=== PATIENT | female | born 1995 | race American Indian/Alaskan Native ===

== ENCOUNTER 2017-10-17 14:00 | Emergency (ER) | payer MEDICAID, OTHER ==
[2017-10-17 14:10] VITALS: TEMP 98
[2017-10-17 14:38] LABS: HCG,QUALITATIVE URINE POSITIVE (NEGATIVE)
[2017-10-17 14:41] LABS: SQUAMOUS EPITHIAL 1 /hpf (0-5); URINE BILIRUBIN NEGATIVE (NEGATIVE); URINE BLOOD NEGATIVE (NEGATIVE); URINE CLARITY Clear (Clear); URINE COLOR Yellow (YELLOW); URINE GLUCOSE (UA) NORMAL (Normal); URINE LEUKOCYTE ESTERASE NEG Leu/uL (Negative); URINE PROTEIN NEGATIVE (NEGATIVE)
--- NOTE | 2017-10-17 15:26 | C.PDOC ---
History Of Present Illness 22 yo female , LNMP 08/29/17, present to ED for evaluation of vaginal spotting developed since early today. Pt denies fever, chills, abd. pain, N/V, back pain, UTI sx, denies previous hx of ectopic . Ambulate to Ed for evaluation, not in any apparent distress. Time Seen by Provider: 10/17/17 14:13 Chief Complaint (Nursing): Female Genitourinary History Per: Patient Past Medical History Reviewed: Historical Data, Nursing Documentation, Vital Signs Vital Signs: Last Vital Signs Temp 98.0 F 10/17/17 14:09 Pulse 73 10/17/17 16:27 Resp 16 10/17/17 16:27 BP 118/78 10/17/17 16:27 Pulse Ox 97 10/17/17 16:39 - Medical History PMH: No Chronic Diseases Surgical History: No Surg Hx Family History: States: Unknown Family Hx - Social History Hx Tobacco Use: Yes Hx Alcohol Use: No Hx Substance Use: Yes - Immunization History Hx Tetanus Toxoid Vaccination: No Hx Influenza Vaccination: No Hx Pneumococcal Vaccination: No Review Of Systems Except As Marked, All Systems Reviewed And Found Negative. Constitutional: Negative for: Fever, Chills ENT: Negative for: Throat Pain Cardiovascular: Negative for: Chest Pain, Palpitations Respiratory: Negative for: Cough, Shortness of Breath, Hemoptysis, Wheezing Gastrointestinal: Negative for: Nausea, Vomiting, Abdominal Pain, Diarrhea Genitourinary: Positive for: Vaginal Bleeding. Negative for: Dysuria, Incontinence, Hematuria, Vaginal Discharge Musculoskeletal: Negative for: Neck Pain, Back Pain Skin: Negative for: Rash Neurological: Negative for: Weakness, Numbness, Altered Mental Status, Headache , Dizziness Physical Exam - Physical Exam Appears: Well, Non-toxic, No Acute Distress Skin: Normal Color, Warm, Dry, No Rash Head: Normacephalic Eye(s): bilateral: PERRL Nose: No Discharge Oral Mucosa: Moist, No Drooling Throat: No Erythema Neck: Trachea Midline, Supple Cardiovascular: Rhythm Regular, No Murmur, No JVD Respiratory: No Decreased Breath Sounds, No Accessory Muscle Use, No Stridor, No Wheezing Gastrointestinal/Abdominal: Soft, No Tenderness, No Distention, No Guarding, No Rebound Back: No CVA Tenderness Extremity: Normal ROM, No Deformity, No Swelling Neurological/Psych: Oriented x3, Normal Speech ED Course And Treatment - Laboratory Results Result Diagrams: 10/17/17 16:11 Lab Interpretation: Normal Urine POC: Positive O2 Sat by Pulse Oximetry: 97 Pulse Ox Interpretation: Normal - CT Scan/US Transvaginal US Other Rad Studies (CT/US): Radiology Report Reviewed CT/US Interpretation: 6w5d, IUP, FP, YS, HR(+)115/min, no other acute findings Progress Note: On re-evaluation, pt is afebrile, hemodynamicaly stable. Non- toxic. Abd: benign, (-) guarding, (-) rebound. Back: (-) CVA tenderness. Blood work review, normal. US results review (+) IUP 6w5d, (+) HR, no acute findings. Beta quant resuilts review [id number] and c/w US findings. Blood type O positive. Pt has clinical findings c/w threatened . Pt advised, ref. to F/u with OB in 1-2 days for re-eval. return to ED if any worsening or new changes. Disposition Counseled Patient/Family Regarding: Studies Performed, Diagnosis, Need For Followup, Rx Given - [facility]position [facility] Disposition: HOME/ ROUTINE Disposition Time: 16:36 Condition: STABLE Prescriptions: Vit Calc,Iron,Folic [ Vitamins] 1 each PO DAILY #30 tablet Instructions: Threatened Miscarriage, Quitting Smoking Forms: [facility] (Macedonian) - Clinical Impression Clinical Impression: Threatened , Encounter for smoking cessation counseling
[2017-10-17 16:16] LABS: BASO % 0.6 % (0.0-2.0); EOS # 0.1 K/uL (0.0-0.7); EOS % 1.2 % (0.0-4.0); HEMOGLOBIN 12.2 g/dL (11.0-16.0); LYMPH # 1.6 K/uL (1.0-4.3); LYMPH % 21.2 % (20.0-40.0); MEAN CORPUSCULAR HGB CONC 34.3 g/dL (33.0-37.0); MEAN PLATELET VOLUME 7.9 fL (7.2-11.7); MONO # 0.9 K/uL (0.0-0.8); MONO % 12.2 % (0.0-10.0); NEUT % 64.8 % (50.0-75.0); RBC 4.19 Mil/uL (3.80-5.20); RED CELL DISTRIBUTION WIDTH 13.4 % (11.5-14.5)
[2017-10-17 16:18] LABS: MEAN CELL VOLUME 84.7 fL (81.0-99.0); WHITE BLOOD COUNT 7.7 K/uL (4.8-10.8)
--- NOTE | 2017-10-17 16:19 | US ---
PROCEDURE: OB Pelvic Ultrasound HISTORY: vaginal bleed COMPARISON: None available. FINDINGS: UTERUS: Single Live intrauterine gestation. CRL is 6 mm equivalent to 6 weeks 3 days. Gestational sac diameter is 24 mm equivalent to 7 weeks 0 days age (Ultrasound estimated): 6 weeks 5 days Date of delivery (Ultrasound estimated) : 06/07/2018 Heart rate: 115 bpm. Sara-gestational hemorrhage: None. 2 mm yolk sac identified Uterus measures 8.3 x 4.5 x 6.4 cm. Posterior sub serosal uterine fibroid, 1.7 x 1.6 x 1.8 cm. CERVIX: Long and closed. No cervical abnormality seen. RIGHT OVARY: Measures 2.8 x 1.9 x 2.0 cm. No mass. Normal flow. LEFT OVARY: Measures 3.2 x 2.2 x 3.7 cm. Corpus luteum identified, 1.6 cm. Normal flow. FREE FLUID: None. OTHER FINDINGS: None. IMPRESSION: Single live intrauterine gestation of approximately 6 weeks 5 days gestational age. No subchorionic hemorrhage. Left ovarian corpus luteum. Incidental 1.8 cm posterior subserosal uterine fibroid.
[2017-10-17 16:27] VITALS: BP 118/78; PULSE 73; RESP 16
[2017-10-17 16:36] VITALS: O2SAT 97
== END 2017-10-17 17:37 | disposition home or self-care (01) ==
LOC: C.ER 14:00
DX: O20.0 Threatened abortion (principal); Z3A.01 Less than 8 weeks gestation of pregnancy; Z71.6 Tobacco abuse counseling

== ENCOUNTER 2017-10-22 14:10 | Emergency (ER) | payer OTHER ==
[2017-10-22 14:27] VITALS: RESP 18; TEMP 98; O2SAT 100
--- NOTE | 2017-10-22 14:43 | C.PDOC ---
History Of Present Illness 22 year old female presents to the ED with worsening abdominal cramping. Patient was seen here on 10/17 for vaginal spotting and diagnosed with 6 week viable at that time. Given instructions for possible threatened miscarriage and advised to follow up with OB. Patient reports since then the suprapubic cramping has returned and is persistent. She has not been seen by OB yet. No vaginal bleeding, discharge, or fever. Time Seen by Provider: 10/22/17 14:19 Chief Complaint (Nursing): Female Genitourinary History Per: Patient History/Exam Limitations: no limitations Onset/Duration Of Symptoms: Days Current Symptoms Are (Timing): Still Present Quality Of Discomfort: Cramping Abnormal Vaginal Bleeding: No Past Medical History Reviewed: Historical Data, Nursing Documentation, Vital Signs Vital Signs: Last Vital Signs Temp 98 F 10/22/17 14:23 Pulse 72 10/22/17 14:23 Resp 18 10/22/17 14:23 BP 109/63 10/22/17 14:23 Pulse Ox 100 10/22/17 14:45 Surgical History: No Surg Hx Family History: States: Unknown Family Hx - Social History Hx Tobacco Use: Yes Hx Alcohol Use: No Hx Substance Use: No - Immunization History Hx Tetanus Toxoid Vaccination: No Hx Influenza Vaccination: No Hx Pneumococcal Vaccination: No Review Of Systems Constitutional: Negative for: Fever, Chills Gastrointestinal: Positive for: Abdominal Pain. Negative for: Vomiting Genitourinary: Negative for: Vaginal Discharge, Vaginal Bleeding Physical Exam - Physical Exam Appears: Non-toxic, No Acute Distress Skin: Normal Color, Warm, Dry Head: Atraumatic, Normacephalic Eye(s): bilateral: Normal Inspection, PERRL, EOMI Oral Mucosa: Moist Neck: Normal ROM Chest: Symmetrical Cardiovascular: Rhythm Regular, No Murmur Respiratory: Normal Breath Sounds, No Rales, No Rhonchi, No Wheezing Gastrointestinal/Abdominal: Soft, No Tenderness, No Distention, No Guarding, No Rebound Extremity: Bilateral: Atraumatic, Normal Color And Temperature, Normal ROM Neurological/Psych: Oriented x3, Normal Speech ED Course And Treatment - Laboratory Results Result Diagrams: 10/22/17 15:05 Lab Interpretation: Normal Interpretation Of Abnormal: HCG 283272.0 O2 Sat by Pulse Oximetry: 100 (RA) Pulse Ox Interpretation: Normal - CT Scan/US Pelvic ultrasound Other Rad Studies (CT/US): Read By Radiologist, Radiology Report Reviewed CT/US Interpretation: Accession No. : [id number]. Patient Name / ID : TORRIE GONZALEZ / [id number]. Exam Date : 10/22/2017 17:13:43 ( Approved ). Study Comment : Sex / Age : F / 22Y. Creator : Kamini Lizarraga MD. Dictator : Kamini Lizarraga MD. Motor Hotel Manager : Bomb Loader : Kamini Lizarraga MD. Approver2 : Report Date : 10/22/2017 18:06:17. My Comment : . PROCEDURE: OB Pelvic Ultrasound. HISTORY: with abdominal pain. COMPARISON: 10/17/2017. FINDINGS: UTERUS: Single Live intrauterine gestation. CRL equivalent to 0.87 cm corresponding to 6 weeks and 6 days of gestational age. Gestational sac diameter measures 2.51 cm equivalent to 7 weeks and 1 day gestation. age (Ultrasound estimated): 7 weeks and 0 days. Date of delivery (Ultrasound estimated) : 06/10/2018. Heart rate: 143 bpm. Sara- gestational hemorrhage: None. Uterus is anteverted and measures 9.1 x 4.3 x 6.7 cm. There is redemonstration of 2.0 x 1.7 x 1.9 cm posterior fundal subserosal fibroid. CERVIX: Long and closed. No cervical abnormality seen. RIGHT OVARY: Measures 3.7 x 2.0 x 2.8 cm. No mass. Normal flow. LEFT OVARY: Measures 3.1 x 2.2 x 2.9 cm. No mass. Normal flow. There is a 1.9 cm corpus luteum cyst. FREE FLUID: There is a small amount of free fluid in the cul de sac. OTHER FINDINGS: None. IMPRESSION: Single live intrauterine gestation with mean gestational age of 7 weeks and 0 days.Estimated date of delivery by ultrasound is 06/10/2018. The ultrasound dates correspond with the clinical dates. 2.0 cm posterior fundal subserosal fibroid. Progress Note: Ordered blood work and repeat beta-HCG Reevaluation Time: 18:29 Reassessment Condition: Improved Disposition Counseled Patient/Family Regarding: Studies Performed, Diagnosis, Need For Followup - Disposition Referrals: [facility] [Outside] Disposition: HOME/ ROUTINE Disposition Time: 18:29 Condition: STABLE Instructions: - The Second Month Forms: [employer] (Czech) - Clinical Impression Clinical Impression: Abdominal pain affecting - Scribe Statement The provider has reviewed the documentation as recorded by the Scribe (Chanda Reyes) Provider Attestation: All medical record entries made by the Scribe were at my direction and personally dictated by me. I have reviewed the chart and agree that the record accurately reflects my personal performance of the history, physical exam, medical decision making, and the department course for this patient. I have also personally directed, reviewed, and agree with the discharge instructions and disposition.
[2017-10-22 15:09] LABS: BASO % 0.5 % (0.0-2.0); EOS # 0.1 K/uL (0.0-0.7); EOS % 1.4 % (0.0-4.0); HEMOGLOBIN 11.4 g/dL (11.0-16.0); LYMPH # 1.3 K/uL (1.0-4.3); LYMPH % 19.5 % (20.0-40.0); MEAN CELL VOLUME 85.8 fL (81.0-99.0); MEAN CORPUSCULAR HEMOGLOBIN 29.2 pg (27.0-31.0); MEAN PLATELET VOLUME 8.1 fL (7.2-11.7); MONO # 0.8 K/uL (0.0-0.8); MONO % 11.4 % (0.0-10.0); NEUT # 4.6 K/uL (1.8-7.0); NEUT % 67.2 % (50.0-75.0); RBC 3.89 Mil/uL (3.80-5.20); RED CELL DISTRIBUTION WIDTH 13.5 % (11.5-14.5); WHITE BLOOD COUNT 6.8 K/uL (4.8-10.8)
--- NOTE | 2017-10-22 18:07 | US ---
PROCEDURE: OB Pelvic Ultrasound HISTORY: with abdominal pain COMPARISON: 10/17/2017. FINDINGS: UTERUS: Single Live intrauterine gestation. CRL equivalent to 0.87 cm corresponding to 6 weeks and 6 days of gestational age. Gestational sac diameter measures 2.51 cm equivalent to 7 weeks and 1 day gestation age (Ultrasound estimated): 7 weeks and 0 days Date of delivery (Ultrasound estimated) : 06/10/2018 Heart rate: 143 bpm. Sara-gestational hemorrhage: None. Uterus is anteverted and measures 9.1 x 4.3 x 6.7 cm. There is redemonstration of 2.0 x 1.7 x 1.9 cm posterior fundal subserosal fibroid. CERVIX: Long and closed. No cervical abnormality seen. RIGHT OVARY: Measures 3.7 x 2.0 x 2.8 cm. No mass. Normal flow. LEFT OVARY: Measures 3.1 x 2.2 x 2.9 cm. No mass. Normal flow. There is a 1.9 cm corpus luteum cyst. FREE FLUID: There is a small amount of free fluid in the cul de sac. OTHER FINDINGS: None. IMPRESSION: Single live intrauterine gestation with mean gestational age of 7 weeks and 0 days.Estimated date of delivery by ultrasound is 06/10/2018. The ultrasound dates correspond with the clinical dates. 2.0 cm posterior fundal subserosal fibroid.
[2017-10-22 18:50] VITALS: BP 104/60; PULSE 68
== END 2017-10-22 18:50 | disposition home or self-care (01) ==
LOC: C.ER 14:10
DX: O26.91 Pregnancy related conditions, unspecified, first trimester (principal); R10.9 Unspecified abdominal pain; Z3A.01 Less than 8 weeks gestation of pregnancy

== ENCOUNTER 2018-02-23 16:32 | Inpatient (IN) | payer OTHER, MEDICAID ==
[2018-02-23 16:43] VITALS: RESP 18
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
[2018-02-23 18:17] LABS: ABG ALLEN TEST POS; ARTERIAL BLOOD GAS HCO3 22.1 mmol/L (21-28); ARTERIAL BLOOD GAS HEMOGLOBIN 8.5 g/dL (11.7-17.4); ARTERIAL BLOOD GAS O2 SAT 99.8 % (95-98); ARTERIAL BLOOD GAS PCO2 17 mm/Hg (35-45); ARTERIAL BLOOD GAS TCO2 17.2 mmol/L (22-28)
[2018-02-23] MEDS ORDERED: Lactated Ringer's 1,000 ML IV ONE (22:14)
[2018-02-23] MEDS ORDERED: Betamethasone Soluspan 30 mg/5mL Inj Susp IM ONE (22:45)
[2018-02-23] MEDS ORDERED: Magnesium Sulfate 4 gm/100 ml 4 GM/100 ML BAG IVPB ONE ×2 (23:13→23:16)
[2018-02-23] MEDS ORDERED: Lactated Ringer's 1,000 ML IV SCH (23:15)
[2018-02-23] MEDS ORDERED: Magnesium Sulfate 20 gm 20 GM/500 ML BAG IV SCH (23:15)
--- NOTE | 2018-02-23 23:44 | OBPN ---
Datetime: 02/23/2018 22:45 Membranes, Provider: Intact Contraction Comments Provider: 3-6 IP Progress Note Comment: S/P Ob ultrasound (+) FM. denies Ctx, pelvic pressure Rendon noted for more pronounced contractions Cervical exam: as above Assessment 22 y.o. P0, 25w 4d, S/P CO exposure; Uterine irritability - cervical exam as above. FHR appropriate for gestational age. Plan: 1) IVFs 2) send U/A 3) Betamethasone 12 micrograms IM x 1 4) Observe Case D/W Dr. Mccoy [facility] at approximately 2300 hours: recommends magnesium sulphate therapy and ult rasound in ATU at [address] in the morning. This was discussed with the patient who expre sesd an understanding and she agrees. Plan: 1) Magnesium sulphate: load 4 grams x 1, followed by 2 grams/hour 2) Ob ultrasound in AM, [address] (cervical length) 3) Anticipate Betamethasone 12 mg IM x 1 in 24 hours (02/24/18 approx [id number] hours 4) Observe Dilatation, Provider: FT Effacement, Provider: 40 Station, Provider: -3 Datetime: 02/23/2018 20:23 FHR - Baseline A Provider: 150 Gestation - Est Wks by US: 25w 4d
[2018-02-24] MEDS ORDERED: Magnesium Sulfate 20 gm 20,000 MG/500 ML BAG IV ONE ×2 (00:01→06:46)
[2018-02-24] MEDS ORDERED: Magnesium Sulfate 20 gm 20 GM/500 ML BAG IV SCH ×2 (00:12→00:15)
[2018-02-24 00:15] LABS: BASO % 0.4 % (0.0-2.0); EOS # 0.1 K/uL (0.0-0.7); HEMOGLOBIN 9.9 g/dL (11.0-16.0); LYMPH # 1.8 K/uL (1.0-4.3); MEAN CELL VOLUME 85.8 fL (81.0-99.0); MEAN CORPUSCULAR HEMOGLOBIN 29.4 pg (27.0-31.0); MEAN CORPUSCULAR HGB CONC 34.2 g/dL (33.0-37.0); MEAN PLATELET VOLUME 8.4 fL (7.2-11.7); MONO # 0.8 K/uL (0.0-0.8); MONO % 9.7 % (0.0-10.0); NEUT # 5.8 K/uL (1.8-7.0); NEUT % 67.9 % (50.0-75.0); RBC 3.36 Mil/uL (3.80-5.20); RED CELL DISTRIBUTION WIDTH 13.8 % (11.5-14.5); WHITE BLOOD COUNT 8.6 K/uL (4.8-10.8)
[2018-02-24 00:21] LABS: SQUAMOUS EPITHIAL 3 /hpf (0-5); URINE BACTERIA RARE (<OCC); URINE BILIRUBIN NEGATIVE (NEGATIVE); URINE BLOOD NEGATIVE (NEGATIVE); URINE CLARITY Hazy (Clear); URINE COLOR Yellow (YELLOW); URINE GLUCOSE (UA) NORMAL (Normal); URINE LEUKOCYTE ESTERASE 2+ Leu/uL (Negative); URINE PROTEIN NEGATIVE (NEGATIVE)
[2018-02-24 00:36] LABS: ALB/GLOB RATIO 1.1 (1.0-2.1); ALBUMIN 3.5 g/dL (3.5-5.0); ALT/SGPT 23 U/L (9-52); AST/SGOT 13 U/L (14-36); BLOOD UREA NITROGEN 7 mg/dL (7-17); CALCIUM 9.4 mg/dl (8.6-10.4); GFR AFRICAN-AMERICAN > 60; GFR NON-AFRICAN AMERICAN > 60
[2018-02-24 00:44] LABS: BARBITURATES, UR NEGATIVE (NEGATIVE); BENZODIAZEPINES, UR NEGATIVE (NEGATIVE); OPIATES, UR NEGATIVE (NEGATIVE); PHENCYCLIDINE, UR NEGATIVE (NEGATIVE)
[2018-02-24] MEDS ORDERED: ceFAZolin IV 1 gm in Dextrose 1 GM/50 ML BAG IVPB ONE (07:48)
--- NOTE | 2018-02-24 08:03 | OBPN ---
Datetime: 02/24/2018 07:00 IP Progress Plan Other: F/U cervical length IP Progress Impression Other: S/P carbon monoxide exposure, uterine contractions IP Procedures: Sterile Vag Exam IP Progress Plan: Continue present management Contraction Comments Provider: irritability FHR - Baseline A Provider: 130 Gestation - Est Wks by US: 25w 5d IP Progress Note Comment: Patient received in LDR#1, awakea, alert, oriented to time, person and lucia ce. Reports feeling "hot all over". (+) FM. Denies headaches, blurred vision, difficulty breathing, c hest pain. Lungs: CTA kendal Cardiac: RRR, normal S1, S2 Abdomen: gravid soft Extremities: no clubbing, cyanosis or edema DTRs: 1+ bilaterally Labs: U/A noted for leuk esterase 2+; H/H 9.9/28.8. Mag level 5.9. All else negative Assessment: 22 y.o. P0, 25w 5d, S/P carbon monoxide exposure, incidental finding of contra ctions with some cervical change. On magnesium sulphate, no further cervical change. NB: throughout t he night, unable to verify visually in [employer] magnesium sulphate maintenance at 3 grams per hour. To this effect, will contact pharmacy staff for their assistance in this documentation. S/P betameth asone 1 of 2 doses. FHR appropriate for gestatinal age. U/A noted for UTI. Other lab abnormality - a nemia. Patient is clinically stable. Plan: 1) Decrease magnesium sulphate to 2 grams per hour 2) Start antibiotics for UTI 3) Educate re: iron and p.o. intake for anemia 4) Anticipate discharge and follow up ultrasound in ATU at [address] [place] [address] at/after 0900 hours , as per Dr. Gonzales - case endorsed to oncoming attending. Dilatation, Provider: FT Effacement, Provider: 40 Station, Provider: -3 NICHD Decel Fetus A IP Provider: None
--- NOTE | 2018-02-24 09:02 | OBPN ---
Datetime: 02/24/2018 09:00 IP Progress Impression: labor IP Progress Plan: Discharge IP Progress Note Comment: Called placed to ATU as discussed by Dr frederick with Dr Gonzales for MFM con sultation and cervical length US. Pt to be DC and send over for US as per MFM. Vital Signs Provider: Reviewed
--- NOTE | 2018-02-24 09:05 | OBDCSUM ---
Datetime: 02/24/2018 09:02 Disch Instr Activity: Bedrest Disch Instr Diet: Regular Discharge Diagnosis, Provider: Labor Discharge Comment, Provider: Pt is discharged to ATU for further testing and plan of care as p-er KHADIJAH MKenney Discharge Diagnosis Prov Other: contractions
--- NOTE | 2018-02-24 14:07 | US ---
Date of service: 02/23/2018 PROCEDURE: OB Pelvic Ultrasound HISTORY: 25 wks, carbon monoxide exposure LMP: 08/28/2017. Gestational age by LMP is 25 weeks 4 days with an estimated date of delivery by LMP of 06/04/2018. COMPARISON: 10/22/2017 FINDINGS: UTERUS: Single intrauterine gestation. For biometric parameters age is approximately 25 weeks 6 days 1 week 6 days gestational age. Most of the biometric parameters ROP between 25 weeks 6 days and 26 weeks 5 days. The abdominal circumference is 24 weeks 6 days. Clinical significance of this is unclear. If further evaluation is needed consider consultation at a tertiary obstetric care center Heart rate: 141 bpm. age (Ultrasound estimated): 25 weeks 6 days 1 week 6 days Sara-gestational hemorrhage: None. Date of delivery (Ultrasound estimated) : 06/02/2018 Previously a 2 cm posterior fundal sub serosal fibroid was referenced. Evaluation for this is limited on this exam -and may be beyond the field of view given the interval development. . Greater than 2 cm clear from the internal cervical os. CERVIX: Measures 3.4 cm. Long and closed. No cervical abnormality seen. RIGHT OVARY: Not visualized LEFT OVARY: Not visualized FREE FLUID: None. OTHER FINDINGS: Posterior placenta. Its margin is greater than 2 cm from the internal cervical os. presentation is cephalic. IMPRESSION: Single intrauterine gestation with cardiac activity whose menstrual age by ultrasound parameters is 25 weeks 6 days 1 week 6 days gestation with an estimated date of delivery of 06/02/2018. Less exam on 10/22/2017 was 7 weeks 0 days. Estimated date of delivery by that ultrasound was 06/10/2018. . Interval growth is compatible with this Posterior placenta -no previa. Gross placenta. Cephalic presentation. Limited anatomy -as referenced above. Clinical follow-up recommended.
[2018-02-24 17:47] VITALS: BP 129/62; PULSE 98; TEMP 97.2; O2SAT 97
[2018-02-24] MEDS ORDERED: Betamethasone Soluspan 30 mg/5mL Inj Susp IM SCH (23:15)
== END 2018-02-24 12:00 | disposition home or self-care (01) | DRG 778 ==
LOC: C.EROB 16:32 → C.4D 23:11
PROVIDERS: ADMIT Obstetrics & Gynecology; ATTEND Obstetrics & Gynecology
DX: O60.02 Preterm labor without delivery, second trimester (principal); O23.42 Unspecified infection of urinary tract in pregnancy, second trimester; O26.892 Other specified pregnancy related conditions, second trimester; Z77.028 Contact with and (suspected) exposure to other hazardous aromatic compounds; O99.012 Anemia complicating pregnancy, second trimester; D64.9 Anemia, unspecified; O99.332 Smoking (tobacco) complicating pregnancy, second trimester; Z3A.25 25 weeks gestation of pregnancy

== ENCOUNTER 2018-02-24 20:35 | Emergency (ER) | payer OTHER, MEDICAID ==
[2018-02-24 21:28] VITALS: BMI 27.3
[2018-02-24] MEDS ORDERED: Betamethasone Soluspan 30 mg/5mL Inj Susp IM STA (22:13)
[2018-02-25 04:41] VITALS: BP 121/61; PULSE 96; RESP 18; TEMP 98.6
--- NOTE | 2018-03-05 11:19 | OBADHP ---
Datetime: 02/24/2018 21:04 Admit Comment, IP Provider: Pt is here for second dose of Celestone. No complaints now. Pt advised to f/u with the PMD. FHR - Baseline A Provider: 120 IP Chief Complaint: Other NICHD Variability Prov Fetus A: Moderate 6-25bpm NICHD Accel Fetus A IP Provider: [id number] IP Adm Impression: , intrauterine Datetime: 02/24/2018 09:00 Vital Signs Provider: Reviewed Datetime: 02/24/2018 07:00 Contraction Comments Provider: irritability Gestation - Est Wks by US: 25w 5d NICHD Decel Fetus A IP Provider: None Dilatation, Provider: FT Effacement, Provider: 40 Station, Provider: -3 Datetime: 02/23/2018 22:45 Membranes, Provider: Intact Datetime: 02/23/2018 20:23 IP Chief Complaint Other: Carbon monoxide exposure IP Adm Impression Other: S Pelvic Type - PN: Adequate Extremities - PN: Normal Abdomen - PN: Normal Back - PN: Normal Breast - PN: Normal Lungs - PN: Normal Heart - PN: Normal Thyroid - PN: Not Done Neurologic - PN: Normal HEENT - PN: Normal General - PN: Normal Comments, ACOG Physical Exam: HEENT: normocephalic, atraumatic Abdomen: Soft. non tender. Extremities: warm to touch. All other systems reviewed and arenegative Genitourinary Exam: Normal DTRs - PN: Not Done EGA AdmitDate IP: 25.4
== END 2018-02-24 22:45 | disposition home or self-care (01) ==
LOC: C.EROB 20:35
DX: O26.892 Other specified pregnancy related conditions, second trimester (principal); Z3A.25 25 weeks gestation of pregnancy
CPT/HCPCS: 96372; 99283; J0702